=== PATIENT | male | born 1950 | race Caucasian/White ===

== ENCOUNTER 2019-08-07 08:33 | Outpatient (CLI) | payer MEDICARE, SELFPAY ==
--- NOTE | 2019-08-07 08:38 | ECG_ITS ---
Measurements Intervals [place] Rate: 59 P: 22 LA: 203 QRS: -18 QRSD: 84 T: 24 QT: 397 QTc: 396 Interpretive Statements SINUS BRADYCARDIA BASELINE ARTIFACT- V6 BORDERLINE ECG Electronically Signed On 08-07-2019 9:34:32 CDT by Tunde June D.O.
[2019-08-07 10:03] LABS: Blood Urea Nitrogen 19 mg/dL (9-20); Calcium 9.4 mg/dL (8.4-10.2); Carbon Dioxide 32 mmol/L (22-30); Chloride 102 mmol/L (98-107); Estimated Glomerular Filt Rate > 60; Glucose 108 mg/dL (75-110); Potassium 3.8 mmol/L (3.4-5.0); Sodium 139 mmol/L (137-145)
== END 2019-08-07 08:34 | disposition home or self-care (01) ==
PROVIDERS: Anesthesiology; PCP Family Medicine; Visit Provider Surgery
DX: K40.90 Unilateral inguinal hernia, without obstruction or gangrene, not specified as recurrent (principal); Z79.899 Other long term (current) drug therapy; I10 Essential (primary) hypertension; Z01.818 Encounter for other preprocedural examination; R94.31 Abnormal electrocardiogram [ECG] [EKG]
CPT/HCPCS: 36415; 80048; 86850; 86900; 86901; 93005

== ENCOUNTER 2019-08-11 06:56 | Outpatient (CLI) | payer MEDICARE, SELFPAY | END 2019-08-11 06:57 | disposition home or self-care (01) | PROVIDERS: PCP Family Medicine; Visit Provider Surgery | DX: Z01.818 Encounter for other preprocedural examination (principal); Z11.59 Encounter for screening for other viral diseases | CPT/HCPCS: 87635; U0003 ==

== ENCOUNTER 2019-08-13 08:47 | Outpatient (CLI) | payer MEDICARE, SELFPAY ==
[2019-08-13 17:59] LABS: SARS-CoV-2 RNA PCR Negative
== END 2019-08-13 08:48 | disposition home or self-care (01) ==
LOC: ANHCOVIDDT 08:47
PROVIDERS: PCP Family Medicine; Visit Provider Surgery
DX: Z01.818 Encounter for other preprocedural examination (principal); Z11.59 Encounter for screening for other viral diseases
CPT/HCPCS: 87635; C9803; U0003

== ENCOUNTER 2019-08-14 02:30 | Day surgery (SDC) | payer MEDICARE, SELFPAY ==
[2019-08-06 08:32] VITALS: BMI 26.0
--- NOTE | 2019-08-13 12:10 | P.PNAN_ITS ---
Anes - Initial Pre Proc Eval Procedure: Operation Date: 08/14/19 08:30 Proposed Procedures p Laparoscopic Right Inguinal Hernia Repair With Mesh, Davinci Assisted - Renan Dominguez DO Date/Time: 08/13/19 12:10 Surgeon: Renan Dominguez DO Pre Op Diagnosis: Right Inguinal Hernia Patient Data Age: 69 Gender: M Height: 6 ft 1 in Weight: 89.54 kg Allergies Allergy/AdvReac Type Severity Reaction Status Date / Time No Known Allergies Allergy Verified 08/06/19 08:39 Home Medications Medication Instructions Recorded Confirmed Type atorvastatin 10 mg tablet 10 mg PO DAILY 07/15/19 08/14/19 History carvedilol 25 mg tablet 25 mg PO Q12H 07/15/19 08/14/19 History hydrochlorothiazide 25 mg tablet 25 mg PO DAILY 07/15/19 08/14/19 History olmesartan 40 mg tablet 40 mg PO DAILY 07/15/19 08/14/19 History spironolactone 25 mg tablet 25 mg PO DAILY 07/15/19 08/14/19 History Patient hx anesthesia problems: none Family hx anesthesia problems: none [facility] Past Medical History Medical History (Updated 08/13/19 @ 12:10 by John Nettles MD) CAD (coronary artery disease) Hyperlipidemia Hypertension Skin cancer Surgical History Surgical History History of appendectomy History of laparoscopic cholecystectomy Social History Social History Years smoked: 40 Smoking status: Former smoker Alcohol intake: current Anes - Eval Final PreProcedure Day of Procedure 08/13/19 12:10 Patient weight: overweight Heart: regular rate and rhythm Lungs: clear to auscultation Airway: Mallampati scale class III Neurological: alert and oriented Last oral intake: >/= 8 hours ASA classification: III Emergent: no Anesthetic plan: proceed Anesthesia type and monitoring: general ETT and standard monitoring Informed Consent: The patient's anesthetic plan and its attendant risks and benefits were discussed with the patient/family/POA. Questions were solicited and answers provided to the satisfaction of the patient/family/POA.
[2019-08-14] VITALS (8 sets, daily range): BP systolic 114–145; BP diastolic 63–77; PULSE 58–73; RESP 11–18; TEMP 36.2; O2SAT 95–100
--- NOTE | 2019-08-14 07:17 | WPDHPUPDATE1 ---
History and Physical Update Update Date/Time: 08/14/19 07:17 History and Physical has been reviewed, including an updated exam of the patient. There are NO changes in the patient's condition. Risks, benefits, and alternatives have been discussed and questions answered. Patient agrees to proceed with procedure.
[2019-08-14] MEDS: LACTATED RINGERS 1,000 ML 30 ML IV CONT ×2 (07:45→10:21)
[2019-08-14] MEDS: ceFAZolin 2 GM/D5W 50 ML 2 GM/50 ML BAG IVPB (08:45)
[2019-08-14] MEDS: IBUPROFEN IV 800 MG/200 ML 800 MG/200 ML BAG 400 MG IVPB (09:20)
[2019-08-14] MEDS: BUPIVACAINE/EPINEPHRINE 0.5% 30 ML VIAL INFILTRATE (09:26)
--- NOTE | 2019-08-14 10:11 | PM.PROC ---
Procedure Note - Detailed Date of procedure: 08/14/19 Pre-op diagnosis: Right Inguinal Hernia Post-op diagnosis: same (Indirect RIH) Procedure performed: Laparoscopic right inguinal hernia repair with Progrip mesh, da Jaziel assisted Description of procedure: Procedure as well as risks, benefits, and alternatives were discussed with the patient. Written consent was obtained and placed in chart prior to procedure. Patient was brought back to surgical suite. He was placed supine on operating table. Time-out was done to confirm patient and procedure. He was then intubated by Anesthesia Department. His abdomen was prepped and draped in sterile fashion using chlorhexidine prep. 0.5% bupivacaine with epinephrine was infiltrated at each location for incision. A 12 millimeter transverse incision was made just superior to the umbilicus using a 15 blade scalpel. Blunt dissection was carried out down to the linea alba. A vertical incision was made at the linea alba using a 15 blade scalpel. The peritoneum was then bluntly entered. A 12 millimeter trocar was inserted and carbon dioxide insufflation was used to create a pneumoperitoneum. A camera was inserted and the abdominal cavity was inspected. The patient was placed in slight Trendelenburg position. An 8 millimeter incision was made on the right lateral abdomen and an 8 millimeter trocar was inserted under direct visualization. Another 8 millimeter incision was made in the left lateral abdomen and an 8 millimeter trocar was inserted under direct visualization. The robotic arms were brought up to the patient's bedside and secured to the ports. The camera and instruments were inserted. I then moved over to the robotic console and took control of the camera and instruments. After careful inspection of the abdominal cavity, I began scoring the peritoneum along the right lower quadrant using scissors with electrocautery. The preperitoneal plane was entered and this was carefully dissected caudally along the inferior epigastric vessels. Careful dissection with scissors with electrocautery and blunt dissection was used to continue this dissection. I dissected far enough laterally to allow for mesh placement, and also dissected medially to identify the pubic arch and Abhishek's ligament. The hernia sac was identified and carefully dissected posteriorly. The cord contents were also identified and the peritoneum was carefully dissected far enough posteriorly to allow for mesh placement. Once an adequate pocket was created, I then placed the mesh within the preperitoneal pocket and carefully unfolded it. The mesh was centered on the hernia defect with adequate overlap circumferentially. The inferior edge of the mesh was inspected to ensure that it was far enough away from the peritoneal edge. The mesh appeared in proper position overlying the entire myopectineal orifice. The peritoneum was then closed over the mesh using a 3-0 V-lock running absorbable suture. The robotic instruments were removed. The robotic arms were disengaged from the ports and moved away from the bedside. The patient was flattened out in bed, the ports were removed under direct visualization, and the pneumoperitoneum was released. The fascia of the umbilical incision was approximated using an 0 Vicryl [id number]-ngtva suture. The skin of the incisions was approximated using 4-0 Monocryl subcuticular suture, and Exofin glue was applied on top. The patient was awakened from anesthesia, extubated, and transferred to recovery. Implants: Progrip Mesh 12cm x 16cm Anesthesia: GETA and local (0.5% bupivicaine with epi) Surgeon: Renan Dominguez DO Estimated blood loss (mL): 10 Drains: No Packing: No Pathology: none sent Complications: No immediate complications Condition: stable Disposition: same day Findings: This is a 69-year-old man who presented with a painful bulge that was becoming larger and the right groin region. He had noticed this pr
--- NOTE | 2019-08-14 12:28 | SUR.PHASEII ---
1220 PT AMBULATED TO BATHROOM; ABLE TO URINATE SMALL AMOUNT.
== END 2019-08-14 12:35 | disposition home or self-care (01) ==
PROVIDERS: PCP Family Medicine; Visit Provider Surgery
PROC: 8E0Y4CZ Robotic Assisted Procedure of Lower Extremity, Percutaneous Endoscopic Approach (ICD-10-PCS; CPT 49650; principal; 2019-08-14 08:30)
DX: K40.90 Unilateral inguinal hernia, without obstruction or gangrene, not specified as recurrent (principal); I10 Essential (primary) hypertension; E78.5 Hyperlipidemia, unspecified; I25.10 Atherosclerotic heart disease of native coronary artery without angina pectoris; Z87.891 Personal history of nicotine dependence
CPT/HCPCS: 49650; S2900; 36415; 80048; 86850; 86900; 86901; 87635; 93005; A9270; C1781; C9803; J0690; J1100; J1741; J2250; J2405; J2704; J2710; J3010; J7120; U0003

== ENCOUNTER 2019-09-30 12:29 | Outpatient (CLI) | payer MEDICARE, SELFPAY ==
--- NOTE | ~2019-09-30 | XR_ITS ---
EXAMINATION: XR abdomen/kub 1V INDICATION: Calculus of kidney TECHNIQUE: Supine views of the abdomen were obtained on 2 radiographs. COMPARISON: 09/10/2015 FINDINGS: A 6 mm calcification projects over the upper pole of the left kidney. There is a 17 mm calc ification in the midline pelvis projecting in the expected location of the urinary bladder. Phlebolit hs are noted in the right pelvis. There are also prostatic calcifications. Cholecystectomy clips are present in the right upper quadrant. The bowel gas pattern is normal. IMPRESSION: 1. Likely stones in the left kidney upper pole and urinary bladder. Reviewed, dictated and finalized at location A.
== END 2019-09-30 12:30 | disposition home or self-care (01) ==
LOC: ANHIMG 12:33
PROVIDERS: PCP Family Medicine; Visit Provider Urology
DX: N20.0 Calculus of kidney (principal)
CPT/HCPCS: 74018

== ENCOUNTER 2019-10-13 14:10 | Outpatient (CLI) | payer MEDICARE, SELFPAY ==
[2019-10-13 14:38] LABS: Blood Urea Nitrogen 22 mg/dL (9-20); Calcium 9.4 mg/dL (8.4-10.2); Carbon Dioxide 29 mmol/L (22-30); Chloride 100 mmol/L (98-107); Estimated Glomerular Filt Rate > 60; Glucose 124 mg/dL (75-110); Potassium 3.6 mmol/L (3.4-5.0); Sodium 137 mmol/L (137-145)
[2019-10-13 14:43] LABS: Partial Thromboplastin Time 22.9 SECONDS (22.3-36.8)
== END 2019-10-13 14:11 | disposition home or self-care (01) ==
PROVIDERS: Anesthesiology; PCP Family Medicine; Visit Provider Urology
DX: N20.0 Calculus of kidney (principal); I10 Essential (primary) hypertension
CPT/HCPCS: 36415; 80048; 85610; 85730; 87086

== ENCOUNTER 2019-10-22 01:10 | Outpatient (CLI) | payer MEDICARE, SELFPAY ==
[2019-10-22 19:19] LABS: SARS-CoV-2 RNA PCR Negative
== END 2019-10-22 01:11 | disposition home or self-care (01) ==
LOC: ANHCOVIDDT 01:11
PROVIDERS: PCP Family Medicine; Visit Provider Urology
DX: Z01.812 Encounter for preprocedural laboratory examination (principal); Z11.59 Encounter for screening for other viral diseases
CPT/HCPCS: 87635; C9803; U0003

== ENCOUNTER 2019-10-24 01:21 | Day surgery (SDC) | payer MEDICARE, SELFPAY ==
[2019-10-10 16:05] VITALS: BMI 26.4
--- NOTE | 2019-10-17 12:59 | PM.HPGS ---
History of Present Illness History of Present Illness Consent: Risks, benefits, and alternatives have been discussed and questions answered. Patient agrees to proceed with procedure. Chief complaint: Renal Stones, Bladder Stones Narrative: Waldo Thompson is a 69 year old male With a longstanding history of prostatism and remote history of urolithiasis. Recently developed flank pain and CT scan of the abdomen and pelvis revealed a nonobstructing 7 mm left renal calculus and a 1.6 cm bladder calculus. KUB shows the stone to be calcified. Review of Systems Cardiovascular: Cardiovascular: Denies chest pain, Denies lightheadedness, Denies palpitations and Denies dyspnea Respiratory: Respiratory: Denies dyspnea Gastrointestinal: Gastrointestinal: Denies diarrhea, Denies nausea and Denies vomiting Genitourinary: Genitourinary: Denies hematuria and Denies dysuria Endocrine: Endocrine: Denies palpitations PMFSH Past Medical History Medical History CAD (coronary artery disease) Hyperlipidemia Hypertension Skin cancer Surgical History Surgical History History of appendectomy History of laparoscopic cholecystectomy History of right inguinal hernia laparoscopic right inguinal hernia repair with Progrip mesh, DaVinci assisted 08/14/19 Family History Family History Father Liver cancer Unknown Heart disease Social History Social History Smoking packs per day: 0.5 Smoking cigarettes per day: 10.0 Years smoked: 5 Smoking pack-years: 2.50 Smoking status: Former smoker Tobacco type: cigarettes Smoking end date: 03/26/69 Alcohol intake: current Drinks per week: 3 Spiritual care concerns: No Meds Home Medications and Allergies Home Medications Medication Instructions Recorded Confirmed Type atorvastatin 10 mg tablet 10 mg PO DAILY 07/15/19 10/10/19 History carvedilol 25 mg tablet 25 mg PO Q12H 07/15/19 10/10/19 History hydrochlorothiazide 25 mg tablet 25 mg PO DAILY 07/15/19 10/10/19 History olmesartan 40 mg tablet 40 mg PO DAILY 07/15/19 10/10/19 History spironolactone 25 mg tablet 25 mg PO DAILY 07/15/19 10/10/19 History ascorbic acid (vitamin C) [Vitamin 500 mg PO DAILY 10/10/19 10/10/19 History C] aspirin [Adult Low Dose Aspirin] 81 mg PO DAILY 10/10/19 10/10/19 History multivitamin,zz-ayrt-[place] 1 tablet PO DAILY 10/10/19 10/10/19 History [Complete Multivitamin] Allergies Allergy/AdvReac Type Severity Reaction Status Date / Time No Known Allergies Allergy Verified 10/10/19 15:45 Exam Const: General: no acute distress Resp: Effort & Inspection: normal respiratory effort GI: Inspection: non-distended GI Palp: No abdominal tenderness and No Guarding due to palpation present (GI) Auscultation: normal bowel sounds Assessment and Plan Assessment and plan (1) Left renal stone: Code(s): N20.0 - Calculus of kidney Status: Acute (2) Bladder stone: Code(s): N21.0 - Calculus in bladder Status: Acute Assessment and Plan: Left ESWL Cystoscopy with laser lithotripsy and removal of bladder calculus
--- NOTE | ~2019-10-24 | XR_ITS ---
EXAMINATION: XR abdomen/kub 1V EXAM DATE: 10/24/2019 06:51 INDICATION: Kidney stone. Lithotripsy. TECHNIQUE: Frontal projection(s) of the abdomen for interpretation. Comparison is made to prior exami nation from 09/30/2019. FINDINGS: Probable left superior calyceal 6 mm stone unchanged. No calcifications projecting over th e right renal contour. There are pelvic calcifications, also unchanged. Nonobstructive bowel gas agus dinah. There are cholecystectomy clips. There are mild bony degenerative changes. IMPRESSION: 1. Left nephrolithiasis. Reviewed, dictated and finalized at location A. IMPRESSION: 1. Left nephrolithiasis.
--- NOTE | 2019-10-24 06:45 | WPDHPUPDATE1 ---
History and Physical Update Update Date/Time: 10/24/19 06:45 History and Physical has been reviewed, including an updated exam of the patient. There are NO changes in the patient's condition. Risks, benefits, and alternatives have been discussed and questions answered. Patient agrees to proceed with procedure.
[2019-10-24 07:00] VITALS: BP 133/75; PULSE 65; RESP 17; TEMP 35.8; O2SAT 100
--- NOTE | 2019-10-24 07:16 | WPDANESEPPF ---
Anes - Initial Pre Proc Eval Procedure: Operation Date: 10/24/19 08:30 Proposed Procedures p Left Renal Extracorporeal Shock Wave Lithotripsy - Zachariah Sales MD s Cystoscopy - Zachariah Sales MD s Holmium Laser Ablation, Extraction of Bladder Stones - Zachariah Sales MD Date/Time: 10/24/19 07:16 Surgeon: Zachariah Sales MD Pre Op Diagnosis: Renal Stones, Bladder Stones Patient Data Age: 69 Gender: M Height: 6 ft 1 in Weight: 90.75 kg Last Vital Signs Temp 96.4 F L 10/24/19 07:00 Pulse 65 10/24/19 07:00 Resp 17 10/24/19 07:00 BP 133/75 10/24/19 07:00 Pulse Ox 100 10/24/19 07:00 Allergies Allergy/AdvReac Type Severity Reaction Status Date / Time No Known Allergies Allergy Verified 10/10/19 15:45 Home Medications Medication Instructions Recorded Confirmed Type atorvastatin 10 mg tablet 10 mg PO DAILY 07/15/19 10/10/19 History carvedilol 25 mg tablet 25 mg PO Q12H 07/15/19 10/10/19 History hydrochlorothiazide 25 mg tablet 25 mg PO DAILY 07/15/19 10/10/19 History olmesartan 40 mg tablet 40 mg PO DAILY 07/15/19 10/10/19 History spironolactone 25 mg tablet 25 mg PO DAILY 07/15/19 10/10/19 History ascorbic acid (vitamin C) [Vitamin 500 mg PO DAILY 10/10/19 10/10/19 History C] aspirin [Adult Low Dose Aspirin] 81 mg PO DAILY 10/10/19 10/10/19 History multivitamin,wo-oswf-rzcuyphw 1 tablet PO DAILY 10/10/19 10/10/19 History [Complete Multivitamin] Patient hx anesthesia problems: none Family hx anesthesia problems: none PMFSH Past Medical History Medical History (Updated 10/24/19 @ 07:16 by John Nettles MD) CAD (coronary artery disease) GERD (gastroesophageal reflux disease) Hyperlipidemia Hypertension Skin cancer Surgical History Surgical History History of appendectomy History of laparoscopic cholecystectomy History of right inguinal hernia laparoscopic right inguinal hernia repair with Progrip mesh, DaVinci assisted 08/14/19 Family History Family History Father Liver cancer Unknown Heart disease Social History Social History Smoking packs per day: 0.5 Smoking cigarettes per day: 10.0 Years smoked: 5 Smoking pack-years: 2.50 Smoking status: Former smoker Tobacco type: cigarettes Smoking end date: 03/26/69 Alcohol intake: current Drinks per week: 3 Alcohol use details: BEER Living arrangements: with family Spiritual care concerns: No Anes - Eval Final PreProcedure Day of Procedure 10/24/19 07:16 Patient weight: overweight Heart: regular rate and rhythm Lungs: clear to auscultation Airway: Mallampati scale class III Neurological: alert and oriented Last oral intake: >/= 8 hours ASA classification: III Emergent: no Anesthetic plan: proceed Anesthesia type and monitoring: general LMA and standard monitoring Informed Consent: The patient's anesthetic plan and its attendant risks and benefits were discussed with the patient/family/POA. Questions were solicited and answers provided to the satisfaction of the patient/family/POA.
[2019-10-24] MEDS: LACTATED RINGERS 1,000 ML 30 ML IV CONT ×2 (07:40→09:40)
[2019-10-24] MEDS: ceFAZolin 2 GM/D5W 50 ML 2 GM/50 ML BAG IVPB (08:43)
--- NOTE | 2019-10-24 09:24 | PM.PROC ---
Procedure Note - Detailed Date of procedure: 10/24/19 Pre-op diagnosis: Renal Stones, Bladder Stones Post-op diagnosis: same Procedure performed: 1. Cysto., laser lithotripsy with bladder stone extraction. 2. Left ESWL. Description of procedure: The patient is brought to the operative suite where he was prepped and draped in a routine sterile fashion while in the dorsal lithotomy position after the uneventful induction of a general anesthetic. A 21F rigid cystoscope was placed in his bladder. He has no urethral strictures but moderate prostatic hyperplasia. He has a small median lobe enlargement with an estimated prostatic urethral length of approximately 2.0cm. He has one bladder calculus measuring approximately 2cm each . Using a 1000 micron holmium laser fiber laser these stones are fractured into smaller particles. The particles are evacuated using the [employer] evacuator. The patient was then positined in the supine position on the Dornier lithotripsy table. The focal point of the lithotripter was placed at a 8mm left renal calculus. A total of 2500 shocks were delivered at a power setting of 4. There appeared to be good fragmentation of the stone. The patient tolerated the procedure well and was taken to the recovery room in good condition. Anesthesia: GLMA Surgeon: Zachariah Sales MD Estimated blood loss (mL): 0 Drains: No Packing: No Pathology: yes Complications: No immediate complications Condition: stable Disposition: PACU
[2019-10-24 09:40] VITALS: BP 127/69; PULSE 65; RESP 12; TEMP 37.2; O2SAT 100
[2019-10-24 09:55] VITALS: BP 127/70; PULSE 60; RESP 12; O2SAT 100
[2019-10-24 10:10] VITALS: BP 121/69; PULSE 59; RESP 14; O2SAT 100
[2019-10-24 10:16] VITALS: BP 130/73; PULSE 58; RESP 14
[2019-10-24 10:45] VITALS: BP 132/72; PULSE 51; RESP 14
== END 2019-10-24 10:55 | disposition home or self-care (01) ==
PROVIDERS: PCP Family Medicine; Visit Provider Urology
PROC: (CPT 50590; principal; 2019-10-24 08:30)
PROC: (CPT 52352; 2019-10-24 08:30)
PROC: (CPT 52317; 2019-10-24 08:30)
DX: N20.0 Calculus of kidney (principal); N21.0 Calculus in bladder; N40.0 Benign prostatic hyperplasia without lower urinary tract symptoms; I25.10 Atherosclerotic heart disease of native coronary artery without angina pectoris; I10 Essential (primary) hypertension; E78.5 Hyperlipidemia, unspecified; K21.9 Gastro-esophageal reflux disease without esophagitis; Z79.82 Long term (current) use of aspirin; Z87.891 Personal history of nicotine dependence
CPT/HCPCS: 52317; 50590; 74018; 82365; 87635; 88300; A9270; C9803; J0690; J1100; J2250; J2405; J2704; J3010; J7120; U0003

== ENCOUNTER 2019-12-02 07:46 | Outpatient (CLI) | payer MEDICARE, SELFPAY ==
--- NOTE | ~2019-12-02 | XR_ITS ---
EXAMINATION: XR abdomen/kub 1V INDICATION: Calculus of kidney TECHNIQUE: Supine views of the abdomen were obtained on 2 radiographs. COMPARISON: 10/24/2019 FINDINGS: An 8 mm stone or stone fragment projects in the expected location of the left mid ureter la teral to the left L3 transverse process. A 1.3 cm left pelvic calcification seen on the prior examina tion is no longer evident, likely treated bladder stone. No definite nephrolithiasis is identified. T here are pelvic phleboliths. Prostatic calcifications are also noted. Surgical clips in the right upp er quadrant are likely from prior cholecystectomy. The bowel gas pattern is normal. IMPRESSION: 1. 8 mm stone or stone fragment projecting in the left mid ureter. 2. Likely treated bladder stone. Reviewed, dictated and finalized at location B.
== END 2019-12-02 07:47 | disposition home or self-care (01) ==
LOC: ANHIMG 07:48
PROVIDERS: PCP Family Medicine; Visit Provider Urology
DX: N20.0 Calculus of kidney (principal)
CPT/HCPCS: 74018

== ENCOUNTER 2020-06-22 10:15 | Outpatient (CLI) | payer MEDICARE, SELFPAY ==
--- NOTE | ~2020-06-22 | XR_ITS ---
XR abdomen/kub 1V 06/22/2020 10:28 Indication: Renal stones Procedure: KUB Comparison: Comparison to multiple prior studies sequentially, with oldest reviewed study dated 2015. Findings: Bowel gas pattern is nonobstructive. There are cholecystectomy clips. There are punctate ra diodensities overlying the upper abdomen, likely bowel content. There is a calcification in the left pelvis, suspicious for distal ureteral stone. No acute osseous abnormality. Impression: 1: Left pelvic calcification measuring 6 mm, suspicious for distal ureteral stone. Reviewed, dictated and finalized at location B. Impression: 1: Left pelvic calcification measuring 6 mm, suspicious for distal ureteral sto ne.
== END 2020-06-22 10:16 | disposition home or self-care (01) ==
LOC: ANHIMG 10:20
PROVIDERS: PCP Family Medicine; Visit Provider Urology
DX: N20.0 Calculus of kidney (principal)
CPT/HCPCS: 74018

== ENCOUNTER 2020-06-29 08:23 | Outpatient (CLI) | payer MEDICARE, SELFPAY ==
--- NOTE | ~2020-06-29 | CT_ITS ---
EXAMINATION: CT abdomen pelvis wo con DATE: 06/29/2020 08:43 INDICATION: Calculus of kidney. TECHNIQUE: Computed tomography (CT) of the abdomen and pelvis was performed without intravenous contr ast. Automated exposure control and iterative reconstruction technique were employed. The dose-length product was 263.12 mGy-cm. COMPARISON: CT abdomen and pelvis 05/03/2012 FINDINGS: The visualized portions of the lung bases demonstrate mild atelectasis. There is mild bronc hiectasis bilaterally. No pleural effusion. The heart size is normal. There are coronary artery calci fications. No pericardial effusion. There is a small sliding hiatal hernia. The liver and spleen are normal. There are changes of cholecystectomy. The pancreas and adrenal glands are normal. There is a 4 mm stone in right kidney. There is a 2 mm stone in left kidney. There is a 5 mm stone in distal lef t ureter. There are no dilated loops of bowel. There are changes of appendectomy. There are no pathol ogically enlarged lymph nodes. There is no free intraperitoneal fluid. There is severe lower lumbar s pondylosis. IMPRESSION: 1. 5 mm stone in distal left ureter. No hydronephrosis. 2. Bilateral nonobstructing kidney stones. Reviewed, dictated and finalized at location A.
== END 2020-06-29 08:24 | disposition home or self-care (01) ==
PROVIDERS: PCP Family Medicine; Visit Provider Urology
DX: N20.0 Calculus of kidney (principal); J47.9 Bronchiectasis, uncomplicated; K44.9 Diaphragmatic hernia without obstruction or gangrene; I25.10 Atherosclerotic heart disease of native coronary artery without angina pectoris; M47.816 Spondylosis without myelopathy or radiculopathy, lumbar region
CPT/HCPCS: 74176

== ENCOUNTER 2020-07-08 09:02 | Outpatient (CLI) | payer MEDICARE, SELFPAY ==
[2020-07-08 09:42] LABS: INR 0.9; Prothrombin Time 12.5 Seconds (11.1-14.7)
[2020-07-08 09:44] LABS: Anion Gap 3 mmol/L (8-16); Blood Urea Nitrogen 19 mg/dL (9-20); Calcium 9.6 mg/dL (8.4-10.2); Carbon Dioxide 34 mmol/L (22-30); Chloride 101 mmol/L (98-107); Estimated Glomerular Filt Rate > 60; Glucose 109 mg/dL (75-110); Sodium 138 mmol/L (137-145)
== END 2020-07-08 09:03 | disposition home or self-care (01) ==
LOC: ANHSURGERY 09:04
PROVIDERS: Anesthesiology; PCP Family Medicine; Visit Provider Urology
DX: N20.0 Calculus of kidney (principal); I10 Essential (primary) hypertension; Z01.818 Encounter for other preprocedural examination
CPT/HCPCS: 36415; 80048; 85610; 85730; 87086

== ENCOUNTER → 2020-07-13 03:46 | Outpatient (CLI) | payer MEDICARE, SELFPAY ==
[2020-07-13 20:30] LABS: SARS-CoV-2 RNA PCR Negative
== END ==
PROVIDERS: PCP Family Medicine; Visit Provider Urology
DX: Z01.812 Encounter for preprocedural laboratory examination (principal); Z20.822 Contact with and (suspected) exposure to COVID-19
CPT/HCPCS: C9803; U0003; U0005

== ENCOUNTER 2020-07-16 02:04 | Day surgery (SDC) | payer MEDICARE, SELFPAY ==
[2020-07-02 13:41] VITALS: BMI 26.4
--- NOTE | 2020-07-08 08:25 | PM.HPGS ---
History of Present Illness History of Present Illness Consent: Risks, benefits, and alternatives have been discussed and questions answered. Patient agrees to proceed with procedure. Chief complaint: left renal stone Narrative: Waldo Thompson is a 70 year old male with a history of urolithiasis a required lithotripsy in October 2019. Routine follow-up imaging recently revealed a calcification in left hemipelvis. Although he was having no pain with suspicious for ureteral stone and, indeed, CT imaging confirmed the presence of mildly obstructing left distal ureteral calculus. After discussion of options including endoscopic extraction ESWL, he elected for the latter. He is aware the risk including perinephric hematoma, persistent stone fragments and Septra. Review of Systems Cardiovascular: Cardiovascular: Denies chest pain, Denies lightheadedness, Denies palpitations and Denies dyspnea Respiratory: Respiratory: Denies dyspnea Gastrointestinal: Gastrointestinal: Denies diarrhea, Denies nausea and Denies vomiting Genitourinary: Genitourinary: Denies hematuria and Denies dysuria Endocrine: Endocrine: Denies palpitations PMFSH Past Medical History Medical History Arthritis BMI 27.0-27.9,adult CAD (coronary artery disease) Colon cancer screening GERD (gastroesophageal reflux disease) Hyperlipidemia Hypertension Mixed hyperlipidemia Nocturia Skin cancer Surgical History Surgical History History of appendectomy History of laparoscopic cholecystectomy History of right inguinal hernia laparoscopic right inguinal hernia repair with Progrip mesh, DaVinci assisted 08/14/19 Family History Family History Father Liver cancer Mother Heart disease Grandparent Heart disease Social History Social History Smoking packs per day: 0.5 Smoking cigarettes per day: 10.0 Years smoked: 5 Smoking pack-years: 2.50 Smoking status: Former smoker Tobacco type: cigarettes Smoking end date: 03/26/72 Alcohol intake: current Drinks per week: 1 Substance use: never Substance use type: does not use Spiritual care concerns: No Meds Home Medications and Allergies Home Medications Medication Instructions Recorded Confirmed Type atorvastatin 10 mg tablet 10 mg PO QAM 07/15/19 07/02/20 History carvedilol 25 mg tablet 25 mg PO Q12H 07/15/19 07/02/20 History hydrochlorothiazide 25 mg tablet 25 mg PO DAILY 07/15/19 07/02/20 History olmesartan 40 mg tablet 40 mg PO QNOON 07/15/19 07/02/20 History spironolactone 25 mg tablet 25 mg PO DAILY 07/15/19 07/02/20 History Complete Multivitamin 1 tablet PO DAILY 10/10/19 07/02/20 History ascorbic acid (vitamin C) [Vitamin 500 mg PO DAILY 10/10/19 07/02/20 History C] aspirin [Adult Low Dose Aspirin] 81 mg PO HS 10/10/19 07/02/20 History hydrocodone-acetaminophen 1 - 2 tablet PO Q6H PRN #20 tablet 10/24/19 07/02/20 Rx Allergies Allergy/AdvReac Type Severity Reaction Status Date / Time No Known Allergies Allergy Verified 07/02/20 13:27 Exam Const: General: no acute distress Resp: Effort & Inspection: normal respiratory effort GI: Inspection: non-distended GI Palp: No abdominal tenderness and No Guarding due to palpation present (GI) Auscultation: normal bowel sounds Assessment and Plan Assessment and plan (1) Left ureteral stone: Code(s): N20.1 - Calculus of ureter Status: Acute Assessment and Plan: Left ESWL
--- NOTE | 2020-07-15 10:44 | WPDANESEPPF ---
Anes - Initial Pre Proc Eval Procedure: Operation Date: 07/16/20 13:30 Proposed Procedures p Left Renal Extracorporeal Shock Wave Lithotripsy - Zachariah Sales MD Date/Time: 07/15/20 10:44 Surgeon: Zachariah Sales MD Pre Op Diagnosis: left renal stone Patient Data Age: 70 Gender: M Height: 1.85 m Weight: 90.75 kg Allergies Allergy/AdvReac Type Severity Reaction Status Date / Time No Known Allergies Allergy Verified 07/02/20 13:27 Home Medications Medication Instructions Recorded Confirmed Type carvedilol 25 mg tablet 25 mg PO Q12H 07/15/19 07/02/20 History hydrochlorothiazide 25 mg tablet 25 mg PO DAILY 07/15/19 07/02/20 History olmesartan 40 mg tablet 40 mg PO QNOON 07/15/19 07/02/20 History spironolactone 25 mg tablet 25 mg PO DAILY 07/15/19 07/02/20 History Complete Multivitamin 1 tablet PO DAILY 10/10/19 07/02/20 History ascorbic acid (vitamin C) [Vitamin 500 mg PO DAILY 10/10/19 07/02/20 History C] aspirin [Adult Low Dose Aspirin] 81 mg PO HS 10/10/19 07/02/20 History hydrocodone-acetaminophen 1 - 2 tablet PO Q6H PRN #20 tablet 10/24/19 07/02/20 Rx atorvastatin 20 mg tablet 20 mg PO DAILY 07/14/20 History ECG: Date of Service: 08/07/19 Procedure(s): CA 12 lead EKG Accession Number(s): [id number] cc: ~ Measurements Intervals [place] Rate: 59 P: 22 RI: 203 QRS: -18 QRSD: 84 T: 24 QT: 397 QTc: 396 Interpretive Statements SINUS BRADYCARDIA BASELINE ARTIFACT- V6 BORDERLINE ECG Electronically Signed On 08-07-2019 9:34:32 CDT by Tunde June D.O. Dictated By: Tunde June DO 08/07/19 0907 Patient hx anesthesia problems: none Family hx anesthesia problems: none PMFSH Past Medical History Medical History Arthritis BMI 27.0-27.9,adult CAD (coronary artery disease) Colon cancer screening GERD (gastroesophageal reflux disease) Hyperlipidemia Hypertension Mixed hyperlipidemia Nocturia Skin cancer Surgical History Surgical History History of appendectomy History of laparoscopic cholecystectomy History of right inguinal hernia laparoscopic right inguinal hernia repair with Progrip mesh, DaVinci assisted 08/14/19 Family History Family History Father Liver cancer Mother Heart disease Grandparent Heart disease Social History Social History Smoking packs per day: 0.5 Smoking cigarettes per day: 10.0 Years smoked: 5 Smoking pack-years: 2.50 Smoking status: Former smoker Tobacco type: cigarettes Smoking end date: 03/26/72 Alcohol intake: current Drinks per week: 3 Alcohol use details: BEER Substance use: never Substance use type: does not use Living arrangements: with family Spiritual care concerns: No Anes - Eval Final PreProcedure Day of Procedure 07/15/20 10:44 Patient weight: overweight Heart: regular rate and rhythm Lungs: clear to auscultation and normal air movement Airway: Mallampati scale class II Neurological: alert and oriented Last oral intake: >/= 8 hours ASA classification: III Emergent: no Anesthetic plan: proceed Anesthesia type and monitoring: general LMA Informed Consent: The patient's anesthetic plan and its attendant risks and benefits were discussed with the patient/family/POA. Questions were solicited and answers provided to the satisfaction of the patient/family/POA.
--- NOTE | ~2020-07-16 | XR_ITS ---
EXAMINATION: XR abdomen/kub 1V DATE: 07/16/2020 11:52 INDICATION: Kidney stone. TECHNIQUE: A supine view of the abdomen on 2 radiographs was obtained. COMPARISON: CT abdomen and pelvis 06/29/2020 FINDINGS: There are no dilated loops of bowel. There are phleboliths in the pelvis. There is a 5 mm s tone in distal left ureter. IMPRESSION: 1. 5 mm stone in distal left ureter. Reviewed, dictated and finalized at location B.
--- NOTE | 2020-07-16 07:02 | WPDHPUPDATE1 ---
History and Physical Update Update Date/Time: 07/16/20 07:02 History and Physical has been reviewed, including an updated exam of the patient. There are NO changes in the patient's condition. Risks, benefits, and alternatives have been discussed and questions answered. Patient agrees to proceed with procedure.
[2020-07-16 11:59] VITALS: BP 127/69; PULSE 58; RESP 18; TEMP 35.9; O2SAT 100
[2020-07-16] MEDS: LACTATED RINGERS 1,000 ML 30 ML IV CONT (12:10)
[2020-07-16] MEDS: ceFAZolin 2 GM/D5W 50 ML 2 GM/50 ML BAG IVPB (13:10)
--- NOTE | 2020-07-16 13:29 | PM.PROC ---
Procedure Note - Detailed Date of procedure: 07/16/20 Pre-op diagnosis: left renal stone Post-op diagnosis: same Procedure performed: Left ESWL Description of procedure: The patient was brought to the operative suite where he was placed in the supine position on the Dornier lithotripsy table. The focal point of the lithotripter was placed at a 5-6mm left distal uretera calculus. A total of 3000 shocks were delivered at a power setting of 6. There appeared to be good fragmentation of the stone. The patient tolerated the procedure well and was taken to the recovery room in good condition. Anesthesia: GLMA Surgeon: Zachariah Sales MD Estimated blood loss (mL): 0 Drains: No Packing: No Pathology: none sent Complications: No immediate complications Condition: stable Disposition: PACU
[2020-07-16 14:00] VITALS: BP 127/70; PULSE 65; RESP 16; TEMP 36.2; O2SAT 100
[2020-07-16 14:15] VITALS: BP 123/47; PULSE 48; RESP 15; O2SAT 100
[2020-07-16 14:25] VITALS: BP 127/69; PULSE 53; RESP 12; O2SAT 100
[2020-07-16 14:29] VITALS: BP 123/61; PULSE 53; RESP 12
[2020-07-16 14:59] VITALS: BP 121/86; PULSE 51; RESP 12
== END 2020-07-16 15:10 | disposition home or self-care (01) ==
PROVIDERS: PCP Family Medicine; Visit Provider Urology
PROC: (CPT 50590; principal; 2020-07-16 13:30)
DX: N20.0 Calculus of kidney (principal); M19.90 Unspecified osteoarthritis, unspecified site; I25.10 Atherosclerotic heart disease of native coronary artery without angina pectoris; K21.9 Gastro-esophageal reflux disease without esophagitis; E78.5 Hyperlipidemia, unspecified; E78.2 Mixed hyperlipidemia; R35.1 Nocturia; Z87.891 Personal history of nicotine dependence; Z79.82 Long term (current) use of aspirin; R00.1 Bradycardia, unspecified; I10 Essential (primary) hypertension
CPT/HCPCS: 50590; 36415; 74018; 80048; 85610; 85730; 87086; C9803; J0690; J1100; J2405; J2704; J7120; U0003; U0005

== ENCOUNTER 2020-08-02 11:54 | Outpatient (CLI) | payer MEDICARE, SELFPAY ==
--- NOTE | ~2020-08-02 | XR_ITS ---
EXAMINATION: XR abdomen/kub 1V EXAM DATE: 08/02/2020 12:08 INDICATION: Kidney stone. TECHNIQUE: Frontal projection(s) of the abdomen for interpretation. Comparison is made to prior exami nation from 07/16/2020. FINDINGS: Previously seen left pelvic density suspected to be distal left ureteral stone measuring ab out 6 mm, position is unchanged at the UVJ. There are no calcific densities projecting over the renal contours. There are cholecystectomy clips. Nonobstructive bowel gas pattern. Lung bases unremarkable . There are mild bony degenerative changes. IMPRESSION: Persistent left UVJ 6 mm stone. Reviewed, dictated and finalized at location A.
== END 2020-08-02 11:55 | disposition home or self-care (01) ==
PROVIDERS: PCP Family Medicine; Visit Provider Urology
DX: N20.0 Calculus of kidney (principal)
CPT/HCPCS: 74018

== ENCOUNTER 2020-08-17 10:52 | Outpatient (CLI) | payer MEDICARE, SELFPAY ==
--- NOTE | ~2020-08-17 | XR_ITS ---
EXAMINATION: XR abdomen/kub 1V INDICATION: Calculus of kidney TECHNIQUE: Supine views of the abdomen were obtained on 2 radiographs. COMPARISON: 08/02/2020 FINDINGS: There is an unchanged 7 mm stone in the left pelvis in the expected location of the distal ureter. Pelvic phleboliths are noted. No stones are identified in the kidneys. Known tiny left kidney stones are not identified. Cholecystectomy clips. There is mild osteoarthritis of the hips. IMPRESSION: 1. 7 mm stone at the expected location of the left ureterovesicular junction. Reviewed, dictated and finalized at location A.
== END 2020-08-17 10:53 | disposition home or self-care (01) ==
LOC: ANHIMG 10:53
PROVIDERS: PCP Family Medicine; Visit Provider Urology
DX: N20.0 Calculus of kidney (principal); M16.0 Bilateral primary osteoarthritis of hip
CPT/HCPCS: 74018

== ENCOUNTER → 2020-09-06 02:52 | Outpatient (CLI) | payer MEDICARE, SELFPAY ==
[2020-09-06 17:43] LABS: SARS-CoV-2 RNA PCR Negative
== END ==
PROVIDERS: PCP Family Medicine; Visit Provider Urology
DX: Z01.812 Encounter for preprocedural laboratory examination (principal); Z20.822 Contact with and (suspected) exposure to COVID-19
CPT/HCPCS: C9803; U0003; U0005

== ENCOUNTER 2020-09-06 08:45 | Outpatient (CLI) | payer MEDICARE, SELFPAY ==
--- NOTE | 2020-09-06 09:00 | ECG_ITS ---
Measurements Intervals [place] Rate: 52 P: 58 OR: 230 QRS: -16 QRSD: 102 T: 44 QT: 408 QTc: 382 Interpretive Statements SINUS BRADYCARDIA WITH FIRST DEGREE AV BLOCK BORDERLINE R WAVE PROGRESSION, ANTERIOR LEADS BASELINE ARTIFACT- II, III, AVF ABNORMAL ECG Electronically Signed On 09-06-2020 9:12:32 CDT by Tunde June D.O.
[2020-09-06 09:43] LABS: Anion Gap 7 mmol/L (8-16); Blood Urea Nitrogen 18 mg/dL (9-20); Calcium 9.7 mg/dL (8.4-10.2); Carbon Dioxide 28 mmol/L (22-30); Chloride 104 mmol/L (98-107); Estimated Glomerular Filt Rate > 60; Glucose 111 mg/dL (75-110); Potassium 4.2 mmol/L (3.4-5.0); Sodium 139 mmol/L (137-145)
== END 2020-09-06 08:46 | disposition home or self-care (01) ==
LOC: ANHSURGERY 08:47
PROVIDERS: Anesthesiology; PCP Family Medicine; Visit Provider Urology
DX: Z01.812 Encounter for preprocedural laboratory examination (principal); I10 Essential (primary) hypertension; Z51.81 Encounter for therapeutic drug level monitoring; R94.31 Abnormal electrocardiogram [ECG] [EKG]
CPT/HCPCS: 36415; 80048; 93005

== ENCOUNTER 2020-09-09 01:53 | Day surgery (SDC) | payer MEDICARE, SELFPAY ==
[2020-08-24 13:53] VITALS: BMI 27.0
--- NOTE | 2020-08-30 08:02 | PM.HPGS ---
History of Present Illness History of Present Illness Consent: Risks, benefits, and alternatives have been discussed and questions answered. Patient agrees to proceed with procedure. Chief complaint: left distal ureteral stone Narrative: Waldo Thompson is a 70 year old male Who is status post left ESWL for a large renal calculus. Has a persistent fragment in the distal left ureter that has failed to pass spontaneously. Review of Systems Cardiovascular: Cardiovascular: Denies chest pain, Denies lightheadedness, Denies palpitations and Denies dyspnea Respiratory: Respiratory: Denies dyspnea Gastrointestinal: Gastrointestinal: Denies diarrhea, Denies nausea and Denies vomiting Genitourinary: Genitourinary: Denies hematuria and Denies dysuria Endocrine: Endocrine: Denies palpitations PMFSH Past Medical History Medical History Arthritis BMI 27.0-27.9,adult CAD (coronary artery disease) Colon cancer screening GERD (gastroesophageal reflux disease) Hyperlipidemia Hypertension Mixed hyperlipidemia Nocturia Skin cancer Surgical History Surgical History History of appendectomy History of laparoscopic cholecystectomy History of right inguinal hernia laparoscopic right inguinal hernia repair with Progrip mesh, DaVinci assisted 08/14/19 Family History Family History Father Liver cancer Mother Heart disease Grandparent Heart disease Social History Social History Smoking packs per day: 0.5 Smoking cigarettes per day: 10.0 Years smoked: 4 Smoking pack-years: 2.00 Smoking status: Former smoker Tobacco type: cigarettes Smoking end date: 09/23/72 Alcohol intake: current Drinks per week: 3 Substance use: never Substance use type: does not use Additional living arrangements comments: Spiritual care concerns: No Meds Home Medications and Allergies Home Medications Medication Instructions Recorded Confirmed Type carvedilol 25 mg tablet 25 mg PO Q12H 07/15/19 08/24/20 History hydrochlorothiazide 25 mg tablet 25 mg PO QAM 07/15/19 08/24/20 History olmesartan 40 mg tablet 40 mg PO QNOON 07/15/19 08/24/20 History spironolactone 25 mg tablet 25 mg PO QAM 07/15/19 08/24/20 History Complete Multivitamin 1 tablet PO DAILY 10/10/19 08/24/20 History ascorbic acid (vitamin C) [Vitamin 500 mg PO DAILY 10/10/19 08/24/20 History C] aspirin [Adult Low Dose Aspirin] 81 mg PO HS 10/10/19 08/24/20 History atorvastatin 20 mg tablet 20 mg PO DAILY 07/14/20 08/24/20 History Allergies Allergy/AdvReac Type Severity Reaction Status Date / Time No Known Allergies Allergy Verified 08/24/20 13:50 Exam Const: General: no acute distress Resp: Effort & Inspection: normal respiratory effort GI: Inspection: non-distended GI Palp: No abdominal tenderness and No Guarding due to palpation present (GI) Auscultation: normal bowel sounds Assessment and Plan Assessment and plan (1) Left ureteral stone: Code(s): N20.1 - Calculus of ureter Status: Acute Assessment and Plan: Left ureteroscopy with stone extraction, possible stent replacement
--- NOTE | 2020-09-08 09:54 | WPDANESEPPF ---
Anes - Initial Pre Proc Eval Procedure: Operation Date: 09/09/20 11:30 Proposed Procedures p Cystoscopy, Left Ureteroscopy with Stone Extraction, Possible Left Stent Placement - Zachariah Sales MD Date/Time: 09/08/20 09:54 Surgeon: Zachariah Sales MD Pre Op Diagnosis: left distal ureteral stone Patient Data Age: 70 Gender: M Height: 1.85 m Weight: 93 kg Allergies Allergy/AdvReac Type Severity Reaction Status Date / Time No Known Allergies Allergy Verified 09/09/20 10:13 Home Medications Medication Instructions Recorded Confirmed Type carvedilol 25 mg tablet 25 mg PO Q12H 07/15/19 09/09/20 History hydrochlorothiazide 25 mg tablet 25 mg PO QAM 07/15/19 09/09/20 History olmesartan 40 mg tablet 40 mg PO QNOON 07/15/19 09/09/20 History spironolactone 25 mg tablet 25 mg PO QAM 07/15/19 09/09/20 History Complete Multivitamin 1 tablet PO DAILY 10/10/19 09/09/20 History ascorbic acid (vitamin C) [Vitamin 500 mg PO DAILY 10/10/19 09/09/20 History C] aspirin [Adult Low Dose Aspirin] 81 mg PO HS 10/10/19 09/09/20 History atorvastatin 20 mg tablet 20 mg PO DAILY 07/14/20 09/09/20 History Patient hx anesthesia problems: none Family hx anesthesia problems: none PMFSH Past Medical History Medical History Arthritis BMI 27.0-27.9,adult CAD (coronary artery disease) Colon cancer screening GERD (gastroesophageal reflux disease) Hyperlipidemia Hypertension Mixed hyperlipidemia Nocturia Skin cancer Surgical History Surgical History History of appendectomy History of laparoscopic cholecystectomy History of right inguinal hernia laparoscopic right inguinal hernia repair with Progrip mesh, DaVinci assisted 08/14/19 Family History Family History Father Liver cancer Mother Heart disease Grandparent Heart disease Social History Social History Smoking packs per day: 0.5 Smoking cigarettes per day: 10.0 Years smoked: 4 Smoking pack-years: 2.00 Smoking status: Former smoker Tobacco type: cigarettes Smoking end date: 09/23/72 Alcohol intake: current Drinks per week: 3 Substance use: never Substance use type: does not use Living arrangements: with family Additional living arrangements comments: Spiritual care concerns: No Anes - Eval Final PreProcedure Day of Procedure 09/08/20 09:54 Patient weight: overweight Heart: regular rate and rhythm Lungs: clear to auscultation and normal air movement Airway: Mallampati scale class II Neurological: alert and oriented Last oral intake: >/= 8 hours ASA classification: III Emergent: no Anesthetic plan: proceed Anesthesia type and monitoring: general LMA Informed Consent: The patient's anesthetic plan and its attendant risks and benefits were discussed with the patient/family/POA. Questions were solicited and answers provided to the satisfaction of the patient/family/POA.
[2020-09-09] VITALS (7 sets, daily range): BP systolic 117–143; BP diastolic 71–84; PULSE 46–60; RESP 10–18; TEMP 35.8–36.4; O2SAT 99–100
--- NOTE | ~2020-09-09 | XR_ITS ---
EXAMINATION: XR fluoroscopy no charge EXAM DATE: 09/09/2020 12:19 INDICATION: Left-sided stone extraction. TECHNIQUE: Fluoroscopy used during left-sided ureteral stone extraction performed by Dr. Zachariah Sales MD. Radiologist was not present for the imaging or procedure. Total fluoroscopic time of 27 seconds. The DAP for this procedure was 403 radcm2. A total of 3 images sent to PACS from the exam . FINDINGS: Images demonstrate cannulation of the left ureter with a wire and subsequently a catheter. Correlate with procedure note. IMPRESSION: Fluoroscopy used during left ureteral stone extraction. Reviewed, dictated and finalized at location B.
--- NOTE | 2020-09-09 06:13 | WPDHPUPDATE1 ---
History and Physical Update Update Date/Time: 09/09/20 06:13 History and Physical has been reviewed, including an updated exam of the patient. There are NO changes in the patient's condition. Risks, benefits, and alternatives have been discussed and questions answered. Patient agrees to proceed with procedure.
[2020-09-09] MEDS: LACTATED RINGERS 1,000 ML 30 ML IV CONT (09:55)
[2020-09-09] MEDS: ceFAZolin 2 GM/D5W 50 ML 2 GM/50 ML BAG IVPB (11:41)
--- NOTE | 2020-09-09 12:32 | P.OP_ITS ---
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 A 19F rigid cystoscope was placed in the bladder. There are no urethral strictures. His prostatic urethra measures, approximately, 2.0cm with no median lobe enlargement. The bladder mucosa was endoscopically normal without hyperemia or neoplasm. There was a single, orthotopic ureteral orifice bilaterally. A 0.035 glidewire was advanced into the left renal pelvis under fluoroscopy. The distal ureter was dilated with an 8F/10F ureteral dilator. Ureteroscopy was undertaken with a short, tapered, semi-rigid ureteroscope. 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 The stone was found in the distal portion of the lower pole moiety ureter. The stone was extracted with ease using a 1.9F Escape disposable stone basket. Due to the ease of this manipulation I opted not to place a ureteral stent. The patient's bladder was emptied and was taken to the recovery room having tolerated this procedure well. Implants None Estimated Blood Loss 0 Drains No Packing No Pathology yes Complications No immediate complications Condition stable Disposition PACU
== END 2020-09-09 13:54 | disposition home or self-care (01) ==
PROVIDERS: PCP Family Medicine; Visit Provider Urology
PROC: (CPT 52352; principal; 2020-09-09 11:30)
DX: N20.1 Calculus of ureter (principal); Q62.5 Duplication of ureter; I10 Essential (primary) hypertension; E78.2 Mixed hyperlipidemia; K21.9 Gastro-esophageal reflux disease without esophagitis; I25.10 Atherosclerotic heart disease of native coronary artery without angina pectoris; Z87.891 Personal history of nicotine dependence; Z79.82 Long term (current) use of aspirin
CPT/HCPCS: 52352; 36415; 80048; 82365; 88300; 93005; A9270; C1769; C1887; C9803; J0690; J1100; J1885; J2405; J2704; J3010; J7120; Q9966; U0003; U0005

== ENCOUNTER 2020-12-27 09:02 | Outpatient (CLI) | payer MEDICARE, SELFPAY ==
--- NOTE | ~2020-12-27 | XR_ITS ---
EXAMINATION: XR abdomen/kub 1V EXAM DATE: 12/27/2020 09:20 INDICATION: Kidney stone. TECHNIQUE: Frontal projection of the upper abdomen, frontal projection lower abdomen/pelvis for inter pretation. Comparison is made to prior examination from 08/17/2020. FINDINGS: Previously seen 7 mm calcification left side of pelvis probably in the ureter is no longer identified. The right pelvic phleboliths are unchanged. No suspicious calcifications on this exam. T here are cholecystectomy clips. There is a nonobstructive bowel gas pattern. IMPRESSION: No suspicious calcifications. Reviewed, dictated and finalized at location A.
== END 2020-12-27 09:03 | disposition home or self-care (01) ==
LOC: ANHIMG 09:09
PROVIDERS: PCP Family Medicine; Visit Provider Urology
DX: N20.0 Calculus of kidney (principal)
CPT/HCPCS: 74018

== ENCOUNTER 2021-04-04 13:57 | Outpatient (CLI) | payer MEDICARE, SELFPAY ==
--- NOTE | ~2021-04-04 | CT_ITS ---
EXAMINATION: CT abdomen pelvis wo/w con DATE: 04/04/2021 14:50 INDICATION: Gross hematuria. TECHNIQUE: Computed tomography (CT) of the abdomen and pelvis was performed without and with intraven ous contrast using a total of 130 mL Omnipaque-350 intravenous contrast with a double-bolus technique for simultaneous opacification of the renal parenchyma and renal collecting system. Automated exposu re control and iterative reconstruction technique were employed. The dose-length product was 1101.44 mGy-cm. COMPARISON: CT abdomen and pelvis 06/29/2020 FINDINGS: The visualized portions of the lung bases demonstrate mild atelectasis and mild chronic lung disease. No pleural effusion. The heart size is normal. There are coronary artery calcifications. There are c alcifications of aortic valve. No pericardial effusion. There is a small sliding hiatal hernia. The l iver is normal. There are changes of cholecystectomy. The spleen, pancreas, and adrenal glands are no rmal. There are cysts in the kidneys measuring up to 5 mm. There is a 1 mm stone in right kidney. The re is 3 stones in left kidney measuring up to 4 mm. Right ureter is well opacified and is normal. 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 The prostate is mildly enlarg ed. There is diverticulosis of the colon without evidence of diverticulitis. There are changes of patel endectomy. There are no pathologically enlarged lymph nodes. There is no free intraperitoneal fluid. There is severe lower lumbar spondylosis. IMPRESSION: 1. Bilateral nonobstructing kidney stones. Reviewed, dictated and finalized at location B. LOCATOR
--- NOTE | ~2021-04-04 | XR_ITS ---
EXAMINATION: XR abdomen/kub 1V DATE: 04/04/2021 14:13 INDICATION: Gross hematuria. TECHNIQUE: A supine view of the abdomen on 2 radiographs was obtained. COMPARISON: CT abdomen and pelvis 04/04/2011 FINDINGS: There are no dilated loops of bowel. Surgical clips in the right upper quadrant are likely from cholecystectomy. There are phleboliths in the pelvis. IMPRESSION: 1. No visible urolithiasis. Reviewed, dictated and finalized at location B. GER PROGRAM MANAGEMENT IMPRESSION: 1. No visible urolithiasis.
[2021-04-04 14:29] LABS: Estimated Glomerular Filt Rate > 60
== END 2021-04-04 13:58 | disposition home or self-care (01) ==
LOC: ANHIMG 14:03
PROVIDERS: PCP Family Medicine; Visit Provider Urology
DX: R31.0 Gross hematuria (principal); N20.0 Calculus of kidney
CPT/HCPCS: 74018; 74178; Q9967

== ENCOUNTER 2021-10-31 13:13 | Outpatient (CLI) | payer MEDICARE, SELFPAY ==
--- NOTE | ~2021-10-31 | XR_ITS ---
XR abdomen/kub 1V 10/31/2021 13:31 INDICATION: Flank pain TECHNIQUE: KUB COMPARISON: Comparison to multiple prior studies sequentially, with oldest reviewed study dated 08/02. FINDINGS: Bowel gas pattern is normal. There is no evidence of free air, mass, organomegaly, ascites or obstruction. No abnormal calculi are seen. The bones appear intact. There are cholecystectomy c lips. IMPRESSION: 1: No acute abdominal abnormality identified. Reviewed, dictated and finalized at location A.
== END 2021-10-31 13:14 | disposition home or self-care (01) ==
PROVIDERS: PCP Family Medicine; Visit Provider Urology
DX: N20.1 Calculus of ureter (principal)
CPT/HCPCS: 74018

== ENCOUNTER 2022-11-07 14:05 | Outpatient (CLI) | payer MEDICARE, SELFPAY ==
--- NOTE | ~2022-11-07 | CT_ITS ---
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 TECHNIQUE: Computed tomography (CT) of the neck was performed with 75 mL Omnipaque-350 intravenous co ntrast. Automated exposure control and iterative reconstruction technique were employed. The dose-william gth product was 476.64 mGy-cm. COMPARISON: None FINDINGS: There is skin thickening of the left ear. There are no pathologically enlarged lymph nodes. There is mild plaque in proximal left internal carotid artery with 0% stenosis relative to normal di stal artery lumen diameter. There is mild mucosal thickening in left maxillary sinus. The mastoid air cells are normal. There is severe cervical spondylosis. IMPRESSION: 1. Skin thickening of the left ear suspicious for squamous cell carcinoma or treatment change. No susi dence of metastatic disease. Reviewed, dictated and finalized at location A. IMPRESSION: 1. Skin thickening of the left ear suspicious for squamous cell carcinoma or tr eatment change. No evidence of metastatic disease.
[2022-11-07 14:44] LABS: Estimated Glomerular Filt Rate 54
== END 2022-11-07 14:06 | disposition home or self-care (01) ==
PROVIDERS: PCP Family Medicine
DX: C44.299 Other specified malignant neoplasm of skin of left ear and external auricular canal (principal)
CPT/HCPCS: 70491; Q9967

== ENCOUNTER 2023-08-11 11:56 | Emergency (ER) | payer MEDICARE, SELFPAY ==
[2023-08-11 11:58] VITALS: BP 135/78; PULSE 59; RESP 16; TEMP 36.4; O2SAT 100
--- NOTE | 2023-08-11 12:21 | ED.SKABFB ---
HPI - Skin/Abscess/Foreign Bdy General Chief complaint: Skin/Abscess/Foreign Body Stated complaint: facial cellulitis Time Seen by Provider: 08/11/23 12:03 History of Present Illness HPI narrative: This is a 73-year-old male, with history of hypertension, presents to the emergency department complaining of a mildly painful rash on the left side of the face, similar to previous episode of cellulitis. The patient states he had recently been working in [employer]. Yesterday he noticed some warmth and mild tenderness of the left side of the face, followed by development of [place] of the skin. He denies weakness, numbness, change/loss of vision/hearing. He denies preceding symptoms of paresthesias or itching. He states this is similar to a previous episode of cellulitis of the face. He has no other complaints at this time. Related Data Home Medications Medication Instructions Recorded Confirmed carvedilol 25 mg tablet 25 mg PO Q12H 07/15/19 07/19/23 hydrochlorothiazide 25 mg tablet 25 mg PO QAM 07/15/19 07/19/23 olmesartan 40 mg tablet 40 mg PO QNOON 07/15/19 07/19/23 spironolactone 25 mg tablet 25 mg PO QAM 07/15/19 07/19/23 ascorbic acid (vitamin C) 500 mg 500 mg PO DAILY 10/10/19 07/19/23 tablet (Vitamin C) multivitamin,dl-qaej-ysynwtez 1 tablet PO DAILY 10/10/19 07/19/23 (Complete Multivitamin tablet) atorvastatin 20 mg tablet 20 mg PO DAILY 07/14/20 07/19/23 aspirin 81 mg tablet,delayed 81 mg PO HS 12/22/20 07/19/23 release (Adult Low Dose Aspirin) ibuprofen 200 mg tablet 600 mg PO Q6H PRN pain 12/26/21 07/19/23 Allergies Allergy/AdvReac Type Severity Reaction Status Date / Time No Known Allergies Allergy Verified 08/11/23 12:01 Review of Systems Review of Systems: All systems reviewed & are unremarkable except as noted in HPI and below PMFSH Past Medical History Medical History Abnormal fasting glucose (12/10/20) fasting glucose 113 on 12/10/2020. Glucose 114 with hemoglobin A1c 5.4 on 12/20/2022. Glucose 104 with hemoglobin A1c 5.8 on 06/28/2023. Achilles tendinitis Actinic keratosis Arthritis BMI 26.0-26.9,adult BMI 27.0-27.9,adult CAD (coronary artery disease) single-vessel disease treated medically 08/2018 Chronic low back pain without sciatica Colon cancer screening colonoscopy with Dr. Key 2012 with recheck in 10 years Dermatitis Encounter for prostate cancer screening PSA 0.58 on 12/20/2022. GERD (gastroesophageal reflux disease) Hyperlipidemia Hypertension Mixed hyperlipidemia total cholesterol 138, triglycerides 105, HDL 56, and LDL 63 on 12/10/2020. Cholesterol 152, triglycerides 136, HDL 55, LDL 75 with ratio 2.8 on 12/20/2022. Cholesterol 134, HDL 50, triglycerides 145, LDL 61 with ratio 2.7 on 06/28/2023. Nocturia Overweight (BMI 25.0-29.9) Pain in right shoulder (~05/2022) Periumbilical hernia (~2021) Seasonal allergic rhinitis Skin cancer Squamous cell carcinoma of left ear (~2022) CT of the soft tissue of the neck on 11/07/2022 reveals no evidence of metastatic squamous cell carcinoma. Severe cervical spondylosis noted. Surgical History Surgical History History of appendectomy History of laparoscopic cholecystectomy History of right inguinal hernia laparoscopic right inguinal hernia repair with Progrip mesh, DaVinci assisted 08/14/19 Family History Family History Father Liver cancer Mother Heart disease Grandparent Heart disease Social History Social History Smoking packs per day: 0.5 Smoking cigarettes per day: 10.0 Years smoked: 2 Smoking pack-years: 1.00 Smoking status: Former smoker Tobacco type: cigarettes Smoking end date: 09/23/72 Alcohol intake: current Alcohol use details: BEER Substance use: never
== END 2023-08-11 12:30 | disposition home or self-care (01) ==
LOC: ANHED 12:32
PROVIDERS: Emergency Provider Preventive Medicine Aerospace Medicine; PCP Family Medicine
DX: L03.211 Cellulitis of face (principal); Z87.891 Personal history of nicotine dependence; M19.90 Unspecified osteoarthritis, unspecified site; I25.10 Atherosclerotic heart disease of native coronary artery without angina pectoris; K21.9 Gastro-esophageal reflux disease without esophagitis; G89.29 Other chronic pain; I10 Essential (primary) hypertension; E78.5 Hyperlipidemia, unspecified; Z85.828 Personal history of other malignant neoplasm of skin
CPT/HCPCS: 99283

== ENCOUNTER 2023-12-19 02:00 | Day surgery (SDC) | payer MEDICARE, SELFPAY ==
[2023-12-03 14:08] VITALS: BMI 27.8
[2023-12-19 08:15] VITALS: BP 99/70; PULSE 78; RESP 18; TEMP 36; O2SAT 98; BMI 26.4
[2023-12-19] MEDS: LACTATED RINGERS 1,000 ML 150 ML IV CONT (08:41)
--- NOTE | 2023-12-19 09:07 | PM.HPGS ---
History of Present Illness History of Present Illness Consent: Risks, benefits, and alternatives have been discussed and questions answered. Patient agrees to proceed with procedure. Chief complaint: neoplasm screening Narrative: Waldo Thompson is a 73 year old male here for screening colonoscopy, last one 11 years ago Review of Systems Review of Systems: All systems reviewed & are unremarkable except as noted in HPI and below PMFSH Past Medical History Medical History Abnormal fasting glucose (12/10/20) fasting glucose 113 on 12/10/2020. Glucose 114 with hemoglobin A1c 5.4 on 12/20/2022. Glucose 104 with hemoglobin A1c 5.8 on 06/28/2023. Achilles tendinitis Actinic keratosis Arthritis BMI 26.0-26.9,adult BMI 27.0-27.9,adult CAD (coronary artery disease) single-vessel disease treated medically 08/2018 Chronic low back pain without sciatica Colon cancer screening colonoscopy with Dr. Key 2012 with recheck in 10 years Dermatitis Encounter for prostate cancer screening PSA 0.58 on 12/20/2022. GERD (gastroesophageal reflux disease) Hyperlipidemia Hypertension Mixed hyperlipidemia total cholesterol 138, triglycerides 105, HDL 56, and LDL 63 on 12/10/2020. Cholesterol 152, triglycerides 136, HDL 55, LDL 75 with ratio 2.8 on 12/20/2022. Cholesterol 134, HDL 50, triglycerides 145, LDL 61 with ratio 2.7 on 06/28/2023. Nocturia Overweight (BMI 25.0-29.9) Pain in right shoulder (~05/2022) Periumbilical hernia (~2021) Seasonal allergic rhinitis Skin cancer Squamous cell carcinoma of left ear (~2022) CT of the soft tissue of the neck on 11/07/2022 reveals no evidence of metastatic squamous cell carcinoma. Severe cervical spondylosis noted. Surgical History Surgical History History of appendectomy History of laparoscopic cholecystectomy History of right inguinal hernia laparoscopic right inguinal hernia repair with Progrip mesh, DaVinci assisted 08/14/19 Family History Family History Father Liver cancer Mother Heart disease Grandparent Heart disease Social History Social History Smoking packs per day: 0.5 Smoking cigarettes per day: 10.0 Years smoked: 3 Smoking pack-years: 1.50 Smoking status: Former smoker Tobacco type: cigarettes Smoking end date: 09/23/72 Alcohol intake: current Drinks per week: 2 Alcohol use details: BEER Substance use: never Substance use type: does not use Lack of Transportation: No Lack of Food: Never True Current Housing: I Have Housing Concerned About Future Housing: No Difficulty Paying Gas/Electric Bills: No Difficulty Paying for Meds: No Currently Unemployed: No Education: Bachelor's Degree Difficulty w/ Childcare or Family Care: No Living arrangements: with family Additional living arrangements comments: with sp Occupation/Education: retired Spiritual care concerns: No Meds Home Medications and Allergies Home Medications Medication Instructions Recorded Confirmed Type carvedilol 25 mg tablet 25 mg PO Q12H 07/15/19 12/19/23 History hydrochlorothiazide 25 mg tablet 25 mg PO QAM 07/15/19 12/19/23 History olmesartan 40 mg tablet 40 mg PO QNOON 07/15/19 12/19/23 History spironolactone 25 mg tablet 25 mg PO QAM 07/15/19 12/19/23 History ascorbic acid (vitamin C) 500 mg 500 mg PO DAILY 10/10/19 12/19/23 History tablet (Vitamin C) multivitamin,[id number] 1 tablet PO DAILY 10/10/19 12/19/23 History (Complete Multivitamin tablet) atorvastatin 20 mg tablet 20 mg PO DAILY 07/14/20 12/19/23 History aspirin 81 mg tablet,delayed 81 mg PO HS 12/22/20 12/19/23 History release (Adult Low Dose Aspirin) fluocinonide 0.05 % topical gel 1 applic topical BID PRN rash #30 12/26
--- NOTE | 2023-12-19 09:10 | WPDANESEPPF ---
Anes - Initial Pre Proc Eval Procedure: Operation Date: 12/19/23 09:30 Proposed Procedures p Screening Colonoscopy - Arthur Ku MD Date/Time: 12/19/23 09:10 Surgeon: Arthur Ku MD Pre Op Diagnosis: neoplasm screening Patient Data Age: 73 Gender: M Height: 1.85 m Weight: 91 kg Last Vital Signs Temp 96.8 F L 12/19/23 08:15 Pulse 78 12/19/23 08:15 Resp 18 12/19/23 08:15 BP 99/70 L 12/19/23 08:15 Pulse Ox 98 12/19/23 08:15 O2 Del Method Room Air 12/19/23 08:15 Allergies Allergy/AdvReac Type Severity Reaction Status Date / Time No Known Allergies Allergy Verified 12/19/23 08:23 Home Medications Medication Instructions Recorded Confirmed Type carvedilol 25 mg tablet 25 mg PO Q12H 07/15/19 12/19/23 History hydrochlorothiazide 25 mg tablet 25 mg PO QAM 07/15/19 12/19/23 History olmesartan 40 mg tablet 40 mg PO QNOON 07/15/19 12/19/23 History spironolactone 25 mg tablet 25 mg PO QAM 07/15/19 12/19/23 History ascorbic acid (vitamin C) 500 mg 500 mg PO DAILY 10/10/19 12/19/23 History tablet (Vitamin C) multivitamin,[id number] 1 tablet PO DAILY 10/10/19 12/19/23 History (Complete Multivitamin tablet) atorvastatin 20 mg tablet 20 mg PO DAILY 07/14/20 12/19/23 History aspirin 81 mg tablet,delayed 81 mg PO HS 12/22/20 12/19/23 History release (Adult Low Dose Aspirin) fluocinonide 0.05 % topical gel 1 applic topical BID PRN rash #30 12/26/21 12/19/23 Rx grams ibuprofen 200 mg tablet 600 mg PO Q6H PRN pain 12/26/21 12/19/23 History azelastine 0.05 % eye drops 1 drp ophthalmic (eye) BID PRN 07/19/23 12/19/23 Rx allergies #6 mL fluticasone propionate 50 1 spray intranasal BID #48 grams 07/19/23 12/19/23 Rx mcg/actuation nasal spray,suspension (Flonase Allergy Relief) Patient hx anesthesia problems: none Family hx anesthesia problems: none Results Review: All pre-operative results and documents have been reviewed as part of the pre-operative evaluation. [facility] Past Medical History Medical History Abnormal fasting glucose (12/10/20) fasting glucose 113 on 12/10/2020. Glucose 114 with hemoglobin A1c 5.4 on 12/20/2022. Glucose 104 with hemoglobin A1c 5.8 on 06/28/2023. Achilles tendinitis Actinic keratosis Arthritis BMI 26.0-26.9,adult BMI 27.0-27.9,adult CAD (coronary artery disease) single-vessel disease treated medically 08/2018 Chronic low back pain without sciatica Colon cancer screening colonoscopy with Dr. Key 2012 with recheck in 10 years Dermatitis Encounter for prostate cancer screening PSA 0.58 on 12/20/2022. GERD (gastroesophageal reflux disease) Hyperlipidemia Hypertension Mixed hyperlipidemia total cholesterol 138, triglycerides 105, HDL 56, and LDL 63 on 12/10/2020. Cholesterol 152, triglycerides 136, HDL 55, LDL 75 with ratio 2.8 on 12/20/2022. Cholesterol 134, HDL 50, triglycerides 145, LDL 61 with ratio 2.7 on 06/28/2023. Nocturia Overweight (BMI 25.0-29.9) Pain in right shoulder (~05/2022) Periumbilical hernia (~2021) Seasonal allergic rhinitis Skin cancer Squamous cell carcinoma of left ear (~2022) CT of the soft tissue of the neck on 11/07/2022 reveals no evidence of metastatic squamous cell carcinoma. Severe cervical spondylosis noted. Surgical History Surgical History History of appendectomy History of laparoscopic cholecystectomy History of right inguinal hernia laparoscopic right inguinal hernia repair with Progrip mesh, DaVinci assisted 08/14/19 Family History Family History Father Liver cancer Mother Heart disease Grandparent Heart disease Social History Social History Smoking packs per day: 0.5 Smoking cigar
[2023-12-19 09:30] VITALS: BP 89/55; PULSE 56; RESP 18; O2SAT 96
[2023-12-19 09:40] VITALS: BP 99/65; PULSE 54; RESP 13; O2SAT 100
[2023-12-19 09:50] VITALS: BP 104/56; PULSE 58; RESP 16; O2SAT 96
== END 2023-12-19 09:58 | disposition home or self-care (01) ==
PROVIDERS: PCP Family Medicine; Visit Provider Internal Medicine Gastroenterology
PROC: 0DJD8ZZ Inspection of Lower Intestinal Tract, Via Natural or Artificial Opening Endoscopic (ICD-10-PCS; CPT 45378; principal; 2023-12-19 09:30)
DX: Z12.11 Encounter for screening for malignant neoplasm of colon (principal); D12.3 Benign neoplasm of transverse colon; I25.10 Atherosclerotic heart disease of native coronary artery without angina pectoris; I10 Essential (primary) hypertension; E78.2 Mixed hyperlipidemia; K21.9 Gastro-esophageal reflux disease without esophagitis; Z87.891 Personal history of nicotine dependence; Z79.82 Long term (current) use of aspirin
CPT/HCPCS: 45385; 88305; J2001; J2704; J7120

== ENCOUNTER → 2024-09-30 11:39 | Outpatient (CLI) | payer MEDICARE, SELFPAY ==
--- NOTE | ~2024-09-30 | XR_ITS ---
XR cervical spine 4-5V Ordering provider: Kenny Albarran MD History: . M54.2 - Cervicalgia off/on years worse lately . Comparison: None. FINDINGS: VERTEBRAL BODIES: Normal height and alignment. No visible fracture or subluxation. The dens is intact . Degenerative changes of the spine. DISK SPACES: Narrowing of the disc of C5-C6, C6-C7 and C7-T1. Multilevel facet joint disease. Multile wilian uncovertebral joint osteoarthritic changes. Slight narrowing of the foramina at the level of C5-C 6 and C6-C7 bilaterally. PARASPINOUS SOFT TISSUES: No prevertebral soft tissue swelling. IMPRESSION: No acute osseous abnormality cervical spine. Multilevel degenerative disc disease. Reviewed, dictated and finalized at location A.
--- NOTE | ~2024-09-30 | XR_ITS ---
Left foot Technique: AP, oblique, and lateral views were obtained. Clinical History: Pain, gout Findings: No acute fracture or dislocation is seen. Questionable minimal erosive change at the first metatarsal head medially, which could indicate gout. Remaining joint spaces are intact. Soft tissues are unremarkable. Impression: Possible subtle gouty erosions at the first metatarsal head. Correlate clinically. Reviewed, dictated and finalized at location . Impression: Possible subtle gouty erosions at the first metatarsal head. Correlate clinical ly.
--- OUTSIDE RECORDS SUMMARY | 2024-09-30 11:42 | XMS_ITS | Referral Summary ---
Author Organization [facility] [address] Address [address] [place] [address] Care Team Providers Care Police Officer Booking Name Role Phone Kenny Albarran MD Primary Care Provider [phone] Allergies No known active allergies Medications fluticasone propionate (FLONASE) 50 mcg/actuation nasal spray Administer 2 sprays into each nostril daily Active clobetasoL (TEMOVATE) 0.05 % external solution RUB IN WELL DAILY TO INVOLVED AREAS OF SCALP UNTIL CLEAR 2 Active sildenafiL (VIAGRA) 100 mg tablet Take by mouth daily as needed 2 Active aspirin 81 mg enteric coated tabletIndications :Dizziness Take 1 tablet (81 mg total) by mouth daily 90 tablet 2 3 Active carvediloL (COREG) 25 mg tabletIndications :Essential hypertension Take 1 tablet (25 mg total) by mouth 2 (two) times a day with meals 180 tablet 3 5 Active olmesartan (BENICAR) 40 mg tablet Take 1 tablet (40 mg total) by mouth nightly 90 tablet 3 5 Active spironolactone (ALDACTONE) 25 mg tablet Take 1 tablet (25 mg total) by mouth daily 90 tablet 3 5 Active atorvastatin (LIPITOR) 20 mg tabletIndications :Coronary artery disease of [place] artery of [place] heart with stable angina pectoris,Hyperlip idemia LDL goal <70 TAKE 1 TABLET BY MOUTH EVERY DAY 90 tablet 3 5 Active hydroCHLOROthiazi de (HYDRODIURIL) 25 mg tablet TAKE 1 TABLET (25 MG TOTAL) BY MOUTH DAILY. 90 tablet 1 5 Active Active Problems Problem Noted Date Diagnosed Date Bilateral impacted cerumen 10/02/2023 Tinnitus of both ears 10/02/2023 Sensorineural hearing loss (SNHL) of both ears 0 06/03/2021 Coronary artery disease of [place] artery of [place] heart with stable angina pectoris 12/20/2018 Abnormal stress test 09/06/2018 Hypertension 02/22/2018 Dizziness 02/22/2018 Lipid screening 02/22/2018 LVE (left ventricular enlargement) 02/22/2018 Pulmonary HTN 02/22/2018 Diastolic dysfunction 02/22/2018 Chest pressure 02/22/2018 Hyperlipidemia LDL goal <70 02/22/2018 Social History Tobacco Use Types Packs/Day Years Used Date Smoking Tobacco: Former Cigarettes 0.5 4.2 0 03/26/1967 - 05/25/1971 Smokeless Tobacco: Never Tobacco Cessation:Counseling Given: Not Answered Alcohol Use Standard Drinks/Week Comments Yes 3 (1 standard drink = 0.6 oz pur e alcohol) Sex and Gender Information Value Date Recorded Sex Assigned at Not on file Legal Sex Male 7:43 PM OVEN BUILDER Gender Identity Male 09/05/2018 4:11 PM CDT Sexual Orientation Straight 09/05/2018 4: 11 PM CDT Last Filed Vital Signs Vital Sign Reading Time Taken Comments Blood Pressure 136/74 05/13/2024 11:24 AM OVEN BUILDER Pulse 59 05/13/2024 11:24 AM OVEN BUILDER Temperature - - Respiratory Rate 18 06/20/2024 10:54 AM CDT Oxygen Saturation 99% 05/13/2024 11:24 AM OVEN BUILDER Inhaled Oxygen Concentration - - Weight 93 kg (205 lb) 06/20/2024 10:54 AM CDT Height 185.4 cm (6' 1) 06/20/2024 10:54 AM CDT Body Mass Index 27.05 06/20/2024 10:54 AM CDT Plan of Treatment Not on file Insurance [facility] MEDICARE [facility] MEDICARE [facility] MEDICARE Care Teams Police Officer Booking Relationship Specialty Start Date End Date Kenny Albarran MD [address] [address] PCP - General Family Medicine 07/06/20
--- OUTSIDE RECORDS SUMMARY | 2024-09-30 11:42 | XMS_ITS | Clinical Summary ---
Author Organization [facility] [address] Address [address] [place] [address] Care Team Providers Care Respiratory Manager Name Role Phone Kenny Albarran MD Primary Care Provider [phone] Allergies No known active allergies Medications fluticasone [...] 20 mg tabletIndications :Coronary artery disease of [place] artery of [place] heart with stable angina pectoris,Hyperlip idemia LDL [...] artery disease of [place] artery of [place] heart with stable angina pectoris 12/20/2018 Abnormal stress test 09/06/2018 Hypertension 02/22/2018 Dizziness 02/22/2018 Lipid screening 02/22/2018 LVE (left ventricular enlargement) 02/22/2018 Pulmonary HTN 02/22/2018 Diastolic dysfunction 02/22/2018 Chest pressure 02/22/2018 Hyperlipidemia LDL goal <70 02/22/2018 Surgical History Surgery Date Site/Laterality Comments CHOLECYSTECTOMY HAND SURGERY APPENDECTOMY HERNIA REPAIR LITHOTRIPSY FRACTURE SURGERY 1968,1980 VASECTOMY 1977 ABDOMINAL SURGERY 2019 SKIN CANCER EXCISION Left ear Medical History Medical History Date Comments Hypertension Skin disorder Sinusitis Gallstones Enlarged prostate Kidney stones Gout Allergic rhinitis Heart disease Arthritis 2017 Ear problems Cancer (HCC) Skin cancer left ear Family History Medical History Relation Name Comments Cancer Father Jacky Hypertension Father Jacky Liver disease Father Jacky Heart disease Maternal Grandfather JReed Arthritis Mother Reedtruong Hypertension Mother Reedtruong Relation Name Status Comments Father Jacky Maternal Grandfather JReed Mother Reedith Social History Tobacco Use Types Packs/Day Years Used Date Smoking Tobacco: Former Cigarettes 0.5 4.2 0 03/26/1967 - 05/25/1971 Smokeless Tobacco: Never Tobacco Cessation:Counseling Given: Not Answered Alcohol Use Standard Drinks/Week Comments Yes 3 (1 standard drink = 0.6 oz pur e alcohol) Sex and Gender Information Value Date Recorded Sex Assigned at Not on file Legal Sex Male 7:43 PM SAMPLER FIRST Gender Identity Male 09/05/2018 4:11 PM CDT Sexual Orientation Straight 09/05/2018 4: 11 PM CDT Obstetrics History Last Filed Vital Signs Vital Sign Reading Time Taken Comments Blood Pressure 136/74 05/13/2024 11:24 AM SAMPLER FIRST Pulse 59 05/13/2024 11:24 AM SAMPLER FIRST Temperature - - Respiratory Rate 18 06/20/2024 10:54 AM CDT Oxygen Saturation 99% 05/13/2024 11:24 AM SAMPLER FIRST Inhaled Oxygen Concentration - - Weight 93 kg (205 lb) 06/20/2024 10:54 AM CDT Height 185.4 cm (6' 1) 06/20/2024 10:54 AM CDT Body Mass Index 27.05 06/20/2024 10:54 AM CDT Plan of Treatment Health Maintenance Due Date Last Done Comments Depression Screening 1948 Fall Risk Assessment 1948 Hepatitis C Screening 1948 DTaP/Tdap/Td Vaccine (1 - Tdap) 06/23/1959 Hepatitis B Screening 1966 Zoster Vaccine (1 of 2) 1998 Abdominal Aortic Aneurysm (A AA) Screen 2013 Well Visit 65+ 2013 Pneumococcal vaccine 65+ (2 of 2 - PPSV23) 03/23/2015 01/26/2015 Influenza Vaccine (#1) 2024 0, 01/31/2017, 01/24/2016, Additional history exists Insurance [facility] MEDICARE [facility] [place] [address] AET MEDICARE Care Teams Respiratory Manager Relationship Specialty Start Date End Date Kenny Albarran MD [address] [address] PCP - General Family Medicine 07/06/20
--- OUTSIDE RECORDS SUMMARY | 2024-09-30 11:42 | XMS_ITS | Continuity of Care Document ---
Author Organization [facility] Address [address] [place] [address] [facility] [address] [place] [address] Phone Care Team Providers Care Flux Mixer Name Role Phone Scoutrobbiedu Timoteo Unavailable Unavailable Procedures Procedure Date Eye Exam, New Patient Refraction Advance Directives Directive Yes / No Effective Date File Name No Information Encounters Encounter Description Practice Location Reason(s) For Visit Diagnoses Date Provider Providers Copied on Encounter [facility], [address] [place] [address] [address], [place], [place], [id number], [place] tel:[phone] [facility] No Information 0 Scoutrobbiedu Mahmood. [address] [facility] [address], [address], [place]. tel:[phone] Family History Family Member Type Diagnosis Age At Onset No Information Payers Payer name Insurance type Covered alliance party ID Authoriza tion(s) [employer] Plan [id number] Social History Type Description Quantity Date Captured Comments Sex Male Smoking Status No Information Chief Complaint And Reason For Visit No Information Reason For Referral Reason For Referral No Information History Of Present Illness Encounter Date Complaint History Of Prese nt Illness No Information Functional Status Date Functional Assessmen t No Information Instructions Date Instruction Additional Infor mation No Information Assessments Type Assessment Date No Information Patient Care Teams Name Effective Dates (start - stop) Status Members No Information
--- OUTSIDE RECORDS SUMMARY | 2024-09-30 11:42 | XMS_ITS | Clinical Summary ---
Author Organization [facility] Address [address] [facility] [place] [address] Care Team Providers Care Mannequin Refinisher Name Role Phone Zachary Slade MD Primary Care Provider Source Comments [facility],non-owned Affiliates and Associated Physician Practices is amultiple site organization consisting of ambulatory clinics and hospital sitesin [place], [place], [place] and [place]. This disclosure is being madepursuant to the Care Everywhere program and may not contain all information available regarding this patient. Last updated 17.[facility] Encounters Date Type Department Care Team Description 09/17/2024 Lab Requisition [facility] - DermPath Lab [address] [place] [address] Camron Son MD from Last 3 Months Social History Tobacco Use Types Packs/Day Years Used Date Smoking Tobacco: Never Assessed Sex and Gender Information Value Date Recorded Sex Assigned at Not on file Legal Sex Male 9:54 AM CDT Gender Identity Not on file Sexual Orientation Not on file Plan of Treatment Health Maintenance Due Date Last Done Comments HEPATITIS C SCREENING 06/18/1966 DTAP/TDAP/TD VACCINES (1 - Tdap) 06/23/1967 PNEUMOCOCCAL VACCINE 50+ (1 of 1 - PCV) 1998 ZOSTER VACCINE (1 of 2) 1998 Respiratory Syncytial Virus (RSV) Vaccine Pt: or over 60 yrs (1 - 1-dose 75+ series) 06/23/2023 COVID-19 VACCINE ( - 2023-2 5 season) 2023 DEPRESSION SCREENING 03/26/2024 MEDICARE AWV CALENDAR YEAR 2024 INFLUENZA VACCINE (#1) 2024 HEPATITIS B VACCINE Aged Out No longe r eligible based on patient's age to complete this topic HIB VACCINE Aged Out No longer eligi ble based on patient's age to complete this topic HPV VACCINE Aged Out No longer eligi ble based on patient's age to complete this topic MENINGOCOCCAL (Group B) VACC INE SHARED DECISION-MAKING Aged Out No longer eligibl e based on patient's age to complete this topic MENINGOCOCCAL GROUPS A/C/Y/W VACCINE Aged Out No longer eligible b ased on patient's age to complete this topic Procedures Procedure Name Priority Date/Time Associated Diagnosis Comments DERMATOPATHOLOGY Routine 09/16/2024 12:0 0 AM CDT from Last 3 Months Results * DERMATOPATHOLOGY (09/16/2024 12:00 AM CDT) Case Report Dermatopathology Report Case: [id number] Authorizing Provider: Camron Son MD Collected: 09/16/2024 12:00 AM Ordering Location: [facility] - Received: 09/17/2024 09:19 AM DermPath Lab Pathologist: Adela Lynch MD Specimen: Skin, right sup templeal scalp 4:58 PM CDT DERMATOPATHOLOGY LABORATORY Final Diagnosis Specimen A. 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 The specimen consists of a 19x9x5 mm piece of skin. The specimen is submitted whole. Jar 0. 4:58 PM CDT DERMATOPATHOLOGY LABORATORY Microscopic Description Specimen A. SKIN, right sup templeal scalp: The specimen is fragmented. Eosinophils, neutrophils, histiocytes, lymphocytes, and multinucleated giant cells are present within the dermis and subcutis. Focal dermal fibrosis as well as focal fat necrosis are present. In addition, there is a dermal and subcutaneous spindled cell proliferation that extends to the base of the specimen. The hematoxylin and eosin stain is reviewed; immunohistochemical stains are performed to further assess the histologic features. CD10 is positive in spindled cells within dermis and subcutis. Factor XIIIa and SMA shows patchy positivity in lesional cells. Lesional cells do not show significant staining with pancytokeratin, desmin, SOX-10, and CD34. CD163 and CD68 highlight numerous histiocytes. Ki67 is positive in scattered lesional cells. Tissue Gram stain is negative for bacteria in the sections examined. Grocott's methenamine silver (GMS) stain fails to highlight fungal elements in the available sections. JENNIFER stain is negative for acid-fast mycobacteria in the sections examined. Additional deeper sections were obtained and reviewed. COMMENT: The histologic differential diagnosis includes a ruptured cyst or follicle, which is somewhat favored, an exuberant arthropod bite reaction, and an infectious process despite negative GMS, Gram, and Jennifer stains; however, a pleomorphic dermal sarcoma cannot be entirely excluded. Therefore, a complete but conservative re-excision is recommended to evaluate this lesion in its entirety and assure complete removal. Clinical correlation with culture is recommended if clinically indicated. This case was also reviewed by Dr. Cinthia Tompkins, who agrees. 5 4:58 PM CDT DERMATOPATHOLOGY LABORATORY Disclaimer An external and internal positive and negative controls are appropriate for the histochemical, immunohistochemical and immunofluorescence stain(s) in this case (if any), except where stated explicitly. The performance characteristics of the stain(s) cited in this report were developed and its performance characteristic determined by the Dermatopathology Laboratory at [facility], directed by Dr. Ariane Samaniego. These tests need not be, and therefore are not, approved by the [place] Food and Drug Administration. The tests are used for clinical purposes. Billing Codes Specimen Charges Stain Charges 61379 1 [id number] [id number] 20478 [id number] 73813 [id number] 24992 1 1 1 1 1 1 1 1 1 1 1 1 1 5 4:58 PM CDT DERMATOPATHOLOGY LABORATORY Embedded Images 5 4:58 PM CDT DERMATOPATHOLOGY LABORATORY Pathology/Cytolog y TISSUE SPECIMEN FROM SKIN / Unknown 09/16/2024 09/17/2024 9:19 AM CDT us Camron Son MD LAB - PATHOLOGY/CYTOLOGY ORDERAB LES Final Result DERMATOPATHOLOGY LABORATORY [facility] - Department of Dermatology [facility] [address] [place] [address], [facility] [phone] from Last 3 Months Insurance [facility] MEDICARE ADV AET[employer] MEDICARE ADV SELF PAY NO INSURANCE Member Subscriber Plan / Payer (Ef fective for All Dates) Name:Waldo Thompson Member ID:Not on file Relation to Subscriber:Not on file Name:WALDO THOMPSON Subscriber ID:Not on file (Home) Address: [address] [place], [place] [address] [address] Payer ID:Not on file Group ID:Not on file Type:Self Pay Address: [place], [place] Care Teams Mannequin Refinisher Relationship Specialty Start Date End Date Zachary Slade MD [address] [place] [address] PCP - General 10/27/19
--- OUTSIDE RECORDS SUMMARY | 2024-09-30 11:42 | XMS_ITS | Encounter Summary ---
Author Organization [facility] Address [address] [place] [address] Care Team Providers Care Condenser Tube Tender Name Role Phone Zachary Slade MD Primary Care Provider Encounter Details Date Type Department Care Team (Late st Contact Info) Description 09/21/2022 Lab Requisition [facility] - DermPath Lab [address] [place] [id number] [place] [address] [place] [id number] Social History Tobacco Use Types Packs/Day Years Used Date Smoking Tobacco: Never Assessed Sex and Gender Information Value Date Recorded Sex Assigned at Not on file Legal Sex Male 9:54 AM CDT Gender Identity Not on file Sexual Orientation Not on file documented as of this encounter Plan of Treatment Not on file documented as of this encounter Procedures Procedure Name Priority Date/Time Associated Diagnosis Comments DERMATOPATHOLOGY Routine 09/20/2022 12:0 0 AM CDT documented in this encounter Results * DERMATOPATHOLOGY (09/20/2022 12:00 AM CDT) Case Report Dermatopathology Report Case: [id number] Authorizing Provider: Camron Son MD Collected: 09/20/2022 12:00 AM Ordering Location: [facility] DermPath Lab Received: 09/21/2022 05:15 PM Pathologist: Cinthia Tompkins MD Specimen: Skin, left tragus 10:57 AM CDT DERMATOPATHOLOGY LABORATORY Final Diagnosis Specimen A. SKIN, left tragus: SQUAMOUS CELL CARCINOMA, WELL DIFFERENTIATED (C44.229) PRESENT AT MARGIN 10:57 AM CDT DERMATOPATHOLOGY LABORATORY at 1057 CDT Clinical History Nodule R/O BCC. Check Margins. 10:57 AM CDT DERMATOPATHOLOGY LABORATORY Gross Description Specimen A: Received is one formalin filled container labeled with the patient's name and designated left tragus. The specimen consists of a shave biopsy measuring 12x8x4 mm. Jar 0+. 10:57 AM T DERMATOPATHOLOGY LABORATORY Microscopic Description Specimen A. SKIN, left tragus: Arising in the epidermis and extending into the dermis there are irregularly shaped aggregates of keratinocytes showing evidence of premature cornification. This lesion is present at the margin of the specimen. 10:57 AM T DERMATOPATHOLOGY LABORATORY Disclaimer An external and internal positive and negative controls are appropriate for the histochemical, immunohistochemical and immunofluorescence stain(s) in this case (if any), except where stated explicitly. The performance characteristics of the stain(s) cited in this report were developed and its performance characteristic determined by the Dermatopathology Laboratory at [facility], directed by Dr. Ariane Samaniego. These tests need not be, and therefore are not, approved by the [place] Food and Drug Administration. The tests are used for clinical purposes. Billing Codes Specimen Charges Stain Charges 39156 1 10:57 AM CDT DERMATOPATHOLOGY LABORATORY Embedded Images 10:57 AM CDT DERMATOPATHOLOGY LABORATORY Pathology/Cytolog y TISSUE SPECIMEN FROM SKIN / Unknown 09/20/2022 09/21/2022 5:15 PM CDT us Camron Son MD LAB - PATHOLOGY/CYTOLOGY ORDERAB LES Final Result DERMATOPATHOLOGY LABORATORY [facility] - Department of Dermatology [address], [address] [phone] documented in this encounter Visit Diagnoses Not on filedocumented in this encounter Care Teams Condenser Tube Tender Relationship Specialty Start Date End Date Zachary Slade MD [address] [place] [address] PCP - General 10/27/19 documented as of this encounter
--- OUTSIDE RECORDS SUMMARY | 2024-09-30 11:42 | XMS_ITS | Encounter Summary ---
Author Organization [facility] Address [address] [place] [address] Care Team Providers Care Finish Production Manager Name Role Phone Zachary Slade MD Primary Care Provider [phone] Encounter Details Date Type Department Care Team (Late st Contact Info) Description 09/17/2024 Lab Requisition [facility] - DermPath Lab [address] [place] [phone] Camron Son MD [address] [place] [address] Social History Tobacco Use Types Packs/Day [...] DERMATOPATHOLOGY Routine 09/16/2024 12:0 0 AM CDT documented in this encounter Results * DERMATOPATHOLOGY (09/16/2024 12:00 AM CDT) Case Report Dermatopathology Report Case: [id number] Authorizing Provider: Camron Son MD Collected: 09/16/2024 12:00 AM Ordering Location: [facility] - Received: 09/17/2024 09:19 AM DermPath Lab Pathologist: Adela Lynch MD Specimen: Skin, right sup templeal scalp 5 4:58 PM CDT DERMATOPATHOLOGY LABORATORY Final Diagnosis Specimen A. 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 The specimen consists of a 19x9x5 mm piece of skin. The specimen is submitted whole. Jar 0. 4:58 PM T DERMATOPATHOLOGY LABORATORY Microscopic Description Specimen A. [...] reviewed by Dr. Cinthia Tompkins, who agrees. 4:58 PM T DERMATOPATHOLOGY LABORATORY Disclaimer An external and internal positive and negative controls are appropriate for the histochemical, immunohistochemical and immunofluorescence stain(s) in this case (if any), except where stated explicitly. The performance characteristics of the stain(s) cited in this report were developed and its performance characteristic determined by the Dermatopathology Laboratory at [facility], directed by Dr. Ariane Samaniego. These tests need not be, and therefore are not, approved by the [place] Food and Drug Administration. The tests are used for clinical purposes. Billing Codes Specimen Charges Stain Charges 60932 1 27026 58865 71115 05431 30450 81280 73933 28279 61043 62065 32517 12693 54387 1 1 1 1 1 1 1 1 1 1 1 1 1 5 4:58 PM CDT DERMATOPATHOLOGY LABORATORY Embedded Images 5 4:58 PM CDT DERMATOPATHOLOGY LABORATORY Pathology/Cytolog y TISSUE SPECIMEN FROM SKIN / Unknown 09/16/2024 09/17/2024 9:19 AM CDT Camron Son MD LAB - PATHOLOGY/CYTOLOGY ORDERAB LES Final Result DERMATOPATHOLOGY LABORATORY [facility] - Department of Dermatology [facility] Medicine [address] [place] [address], [address] [phone] documented in this encounter Visit Diagnoses Not on filedocumented in this encounter Care Teams Finish Production Manager Relationship Specialty Start Date End Date Zachary Slade MD [address] [place] [address] PCP - General 10/27/19 documented as of this encounter
== END ==
PROVIDERS: PCP Family Medicine; Visit Provider Family Medicine
DX: M10.9 Gout, unspecified (principal); M51.369 Other intervertebral disc degeneration, lumbar region without mention of lumbar back pain or lower extremity pain; M50.022 Cervical disc disorder at C5-C6 level with myelopathy; M50.323 Other cervical disc degeneration at C6-C7 level; M50.33 Other cervical disc degeneration, cervicothoracic region
CPT/HCPCS: 72050; 73630